=== PATIENT | male | born 1990 | race Asian ===

== ENCOUNTER 2021-07-02 11:48 | Emergency (ER) | payer SELFPAY ==
[~2021-07-02] VITALS: Ht 172.7 cm; Wt 104.3 kg
[2021-07-02] MEDS ORDERED: MECLIZINE HCL 25 MG TAB PO ONE (12:30)
[2021-07-02 13:27] LABS: Urine Bacteria NONE SEEN /hpf (None Seen); Urine Blood Negative /uL (Negative); Urine Specific Gravity 1.024 (1.001-1.035); Urine WBC <1 /hpf (0 - 3)
[2021-07-02 13:27] LABS: Basophils # (auto) 0 10 ^3/uL (0-0.2); Basophils % (auto) 0.3 % (0.0-2.0); Eosinophils # (auto) 0.2 10 ^3/uL (0-0.8); Eosinophils % (auto) 2.6 % (0.0-7.0); Hematocrit 46.2 % (41.0-53.0); Hemoglobin 16.7 g/dL (13.5-17.5); Lymphocytes # (auto) 3.2 10 ^3/uL (0.4-5.4); Lymphocytes % (auto) 36.4 % (10.0-50.0); Mean Corpuscular Hemoglobin 30.7 pg (28.0-32.0); Mean Corpuscular Hgb Conc. 36.1 g/dL (32.0-36.0); Mean Corpuscular Volume 85.1 fL (80.0-100.0); Monocytes # (auto) 0.7 10 ^3/uL (0-1.3); Monocytes % (auto) 7.6 % (0.0-12.0); Neutrophils # (auto) 4.7 10 ^3/uL (1.6-8.6); Neutrophils % (auto) 53.1 % (37.0-80.0); Nucleated Red Blood Cells % 0.9 %; Red Blood Cells 5.42 10^6/uL (4.5-5.90); White Blood Cell 8.9 10^3/uL (4.4-10.8)
[2021-07-02 13:46] LABS: Calcium 9.1 mg/dL (8.5-10.1); Potassium 4.3 mmol/L (3.5-5.1)
[2021-07-02 13:47] LABS: Albumin 3.8 g/dL (3.4-5.0)
[2021-07-02 13:49] LABS: BUN/Creatinine Ratio 14.7
[2021-07-02 13:50] LABS: Bilirubin, Total 1.4 mg/dL (0.2-1.0); Total Protein 7.8 g/dL (6.4-8.2)
[2021-07-02] MEDS ORDERED: MECL25TA18 PO (15:18)
[2021-07-02 15:20] VITALS: BP 134/98
== END 2021-07-02 15:31 | disposition home or self-care (01) ==
LOC: ER 11:48
DX: R42 Dizziness and giddiness (principal); D69.6 Thrombocytopenia, unspecified; R74.01 Elevation of levels of liver transaminase levels; I10 Essential (primary) hypertension
CPT/HCPCS: 36415; 70450; 80053; 81001; 85025; 93005; 99285; J8597